=== PATIENT | female | born 1975 | race Caucasian/White ===

== ENCOUNTER 2025-01-23 12:13 | Emergency (ER) | payer OTHER ==
[~2025-01-23] VITALS: Ht 165.1 cm; Wt 66.0 kg
[2025-01-23 12:31] VITALS: O2SAT 99
[2025-01-23] MEDS ORDERED: SUMATRIPTAN SUCCINATE 6MG/0.5ML VIAL SUBCUT ONE (13:00)
[2025-01-23] MEDS ORDERED: DEXAMETHASONE 1 MG/ML ORAL SYR PO ONE ×2 (13:00→13:45)
[2025-01-23] MEDS ORDERED: KETOROLAC 30MG/ML VIAL IM ONE (13:00)
[2025-01-23] MEDS: DEXAMETHASONE 4MG TABLET PO SCH (15:00)
[2025-01-23] MEDS: DIPHENHYDRAMINE 25MG CAPSULE PO ONE (15:00)
[2025-01-23] MEDS: PROCHLORPERAZINE MALEATE 10MG TABLET PO ONE (15:00)
[2025-01-23] MEDS: SUMATRIPTAN SUCCINATE 25MG TABLET PO ONE (15:10)
[2025-01-23] MEDS: IBUPROFEN 600MG TABLET PO ONE (15:10)
[2025-01-23] MEDS ORDERED: SUMA100T16 MT (15:43)
[2025-01-23] MEDS ORDERED: IBUP-1455 MT (15:43)
[2025-01-23 16:04] VITALS: BP 142/56; PULSE 54; RESP 14; TEMP 36.8; O2SAT 100
== END 2025-01-23 16:05 | disposition home or self-care (01) ==
LOC: ER 12:13
DX: G43.909 Migraine, unspecified, not intractable, without status migrainosus (principal)
CPT/HCPCS: 99284; J8540; Q0163; Q0164; J3030; Z7610; J1885